=== PATIENT | male | born 1990 | race Caucasian/White ===

== ENCOUNTER 2016-12-10 11:55 | Inpatient (IN) | payer OTHER ==
[~2016-12-10] VITALS: Ht 188 cm; Wt 110.0 kg
[2016-12-10] VITALS (20 sets, daily range): BP systolic 44–99; BP diastolic 32–60; PULSE 117–126; TEMP 36.5–37.2; O2SAT 92–100; Ht 188 cm; Wt 110.0 kg
[2016-12-10] MEDS ORDERED: DEXTROSE 50% 50 ML SYR IV STA (12:03)
--- NOTE | 2016-12-10 12:14 | DIAGNOSTIC IMAGING REPORT ---
CHEST ONE VIEW PORTABLE HISTORY: fever COMPARISON: None. FINDINGS: Bilateral patchy perihilar airspace opacities and mild interstitial thickening. The heart is normal in size. No pleural effusions. No pneumothorax. No rib fractures. IMPRESSION: Bilateral patchy perihilar airspace opacities and mild interstitial thickening. This favors a multifocal pneumonia. Noncardiogenic pulmonary edema could also have a similar appearance but is considered less likely. Recommend follow-up to ensure resolution. Electronically signed by: Rogers Syemour M.D. 12/10/2016 12:13 PM Dictated Date/Time: 12/10/2016 12:12 PM
--- NOTE | 2016-12-10 12:34 | DIAGNOSTIC IMAGING REPORT ---
CHEST ONE VIEW PORTABLE CLINICAL HISTORY: Post Intubation RESPIRATORY FAILURE COMPARISON STUDY: December 10, 2016 FINDINGS: The cardiac and mediastinal contours remain stable. There are persistent asymmetric bilateral pulmonary airspace opacities left greater than right. There has been interval placement of endotracheal tube positioned 52 mm above the stanford.[ IMPRESSION: 1. Endotracheal tube 52 mm above the stanford 2. Persistent bilateral pulmonary airspace opacities Electronically signed by: Chucho Trevino M.D. 12/10/2016 12:32 PM Dictated Date/Time: 12/10/2016 12:31 PM
[2016-12-10] MEDS ORDERED: PROPOFOL IV EMULSION 10 MG/ML 100 ML VIAL IV STA ×2 (12:35→15:56)
[2016-12-10] MEDS ORDERED: SODIUM CHLORIDE 0.9% 1000ML 1,000 ML IV STA (12:37)
[2016-12-10] MEDS ORDERED: DEXTROSE 10% 1,000 ML IV SCH (12:45)
[2016-12-10] MEDS: PIPERACILLIN/TAZOBACTAM 4.5 GM/100ML D5W IV STA ×2 (13:02→13:19)
[2016-12-10 13:05] LABS: INR 1.1 (0.9-1.1); PROTHROMBIN TIME (PATIENT) 11.4 SECONDS (9.0-12.0)
[2016-12-10 13:07] LABS: ALLEN TEST POS (POS); ARTERIAL BLD GAS O2 SATURATION 81.6 % (90-95); ARTERIAL BLOOD GAS BASE EXCESS -6.3 mEq/L (-9-1.8); ARTERIAL BLOOD GAS HCO3 24 mmol/L (19-24); ARTERIAL BLOOD GAS PO2 50 mm/Hg (80-95); O2 ADMINISTRATION 100%
[2016-12-10 13:08] LABS: ARTERIAL BLOOD GAS pH 7.15 (7.35-7.45)
[2016-12-10 13:20] LABS: ALKALINE PHOSPHATASE 104 U/L (45-117); ALT/SGPT 91 U/L (12-78); AST/SGOT 113 U/L (15-37); BLOOD UREA NITROGEN 26 mg/dl (7-18); BUN/CREATININE RATIO 13.4 (10-20); CALCIUM 8.6 mg/dl (8.5-10.1); CARBON DIOXIDE 27 mmol/L (21-32); CHLORIDE 109 mmol/L (98-107); CKMB/CK RATIO 2.2 (0-3.0); GLUCOSE 35 mg/dl (70-99); POTASSIUM 4.2 mmol/L (3.5-5.1); SODIUM 143 mmol/L (136-145)
[2016-12-10] MEDS ORDERED: NITROGLYCERIN 0.4 MG SL PER TAB CHARGE SL PRN (13:45)
[2016-12-10] MEDS ORDERED: LORAZEPAM 2 MG/ML 1 ML VIAL IV PRN (13:45)
[2016-12-10] MEDS ORDERED: MoRPHine SULFATE 2 MG/ML CARP IV PRN (13:45)
[2016-12-10] MEDS ORDERED: ONDANSETRON INJ 2 MG/ML 2 ML VIAL IV PRN (13:45)
[2016-12-10 13:49] LABS: URINE APPEARANCE CLEAR (CLEAR); URINE BILIRUBIN NEG (NEG); URINE COLOR YELLOW; URINE NITRITE NEG (NEG); URINE PH 5.5 (4.5-7.5); URINE SPECIFIC GRAVITY 1.025 (1.000-1.030); UROBILINOGEN NEG (NEG)
[2016-12-10 13:53] LABS: MANUAL MICROSCOPIC REQUIRED? YES; REVIEW REQ? NO
[2016-12-10 13:59] LABS: ISTAT CREATININE 1.8 mg/dl (0.6-1.3); ISTAT HEMOGLOBIN 15.6 g/dl (14.0-18.0); ISTAT IONIZED CALCIUM 1.22 mmol/l (1.12-1.32)
[2016-12-10 14:09] LABS: URINE MUCUS PRESENT (NONE PRSENT); URINE RBC 0-4 /hpf (0-4)
[2016-12-10 14:10] LABS: URINE BACTERIA 1+ (NEG)
[2016-12-10 14:11] LABS: ZZUR CULT IF INDIC CLEAN CATCH YES
--- NOTE | 2016-12-10 14:21 | DIAGNOSTIC IMAGING REPORT ---
CT HEAD WITHOUT CONTRAST (CT) CLINICAL HISTORY: Acute change in mental status. Unresponsive patient. COMPARISON STUDY: No previous studies for comparison. TECHNIQUE: Axial CT of the brain is performed from the vertex to the skull base. IV contrast was not administered for this examination. A dose lowering technique was utilized adhering to the principles of ALARA. CT DOSE: 1277.12 mGycm FINDINGS: No intra or extra-axial mass lesions are visualized. There is no CT evidence of acute cortical infarction. There is no evidence of midline shift. There is no acute hemorrhage. No calvarial fractures are visualized. There is mild motion artifact. There is no evidence of pathologic ventricular dilatation. There is no evidence of acute sinusitis If the patient's neurological status does not improve, an MRI the brain should be considered in follow-up IMPRESSION: No acute intracranial findings Electronically signed by: Chucho Trevino M.D. 12/10/2016 2:19 PM Dictated Date/Time: 12/10/2016 2:18 PM
--- NOTE | 2016-12-10 14:26 | DIAGNOSTIC IMAGING REPORT ---
(CHEST) THORAX WITHOUT CT DOSE: 670.78 mGycm HISTORY: Dyspnea hypoxic per ccm TECHNIQUE: Multiaxial CT images of the chest were performed without contrast. A dose lowering technique was utilized adhering to the principles of ALARA. COMPARISON: None. FINDINGS: Endotracheal tube 3 cm with the stanford. Diffuse bilateral consolidative infiltrates are present. Perihilar infiltrative changes with underlying nodularity is also noted. This appears symmetric. Diagnostic considerations include a diffuse infiltrative and/or pneumonitis type process, versus the possibility of consolidative pulmonary edematous change. The nodularity raises the possibility of underlying neoplastic change/metastatic disease, versus the possibility atypical inflammatory process.. IMPRESSION: 1. Diffuse bilateral consolidative infiltrates involving the bulk of the lower lobe regions bilaterally. 2. Additional perihilar and upper lobe nodular-type change at with associated infiltrative change. 3. Differential considerations include consolidative pulmonary edema, respiratory distress syndrome, versus the possibility of an atypical pneumonitis and/or metastatic-type disease despite the patient's age. The above report was generated using voice recognition software. It may contain grammatical, syntax or spelling errors. Electronically signed by: Mayo Hui M.D. 12/10/2016 2:25 PM Dictated Date/Time: 12/10/2016 2:18 PM
[2016-12-10 14:40] LABS: HEMATOCRIT 45.8 % (42-52); MEAN CELL VOLUME 93.1 fL (80-100); MEAN CORPUSCULAR HEMOGLOBIN 31.5 pg (25-34); MEAN CORPUSCULAR HGB CONC 33.8 g/dl (32-36); MEAN PLATELET VOLUME 9.4 fL (7.4-10.4); PLATELET COUNT 173 K/uL (130-400); RED BLOOD COUNT 4.92 M/uL (4.7-6.1); WHITE BLOOD COUNT 1.23 K/uL (4.8-10.8)
[2016-12-10 14:50] LABS: BASO % 0.8 %; BASO ABS # 0.01 K/uL (0-0.2); COMPLETE YES; LYMPH % 38.2 %; LYMPH ABS # 0.47 K/uL (1.2-3.4); MONO % 7.3 %; NEUT % 53.7 %
[2016-12-10] MEDS ORDERED: PIPERACILL/TAZOBAC CONSULT ACTIVE PRN (15:00)
[2016-12-10] MEDS ORDERED: LORAZEPAM INJ 0.5 MG in SYRINGE 0.75 ML IV PRN (15:15)
[2016-12-10] MEDS ORDERED: SODI CHLOR 2.5MEQ/ML 14.6% INJ 155 MEQ in DEXTROSE 10% 1,000 ML IV SCH (15:17)
--- NOTE | 2016-12-10 15:17 | HISTORY & PHYSICAL EXAMINATION ---
DATE OF ADMISSION: 12/10/2016 CHIEF COMPLAINT: Unresponsiveness. HISTORY OF PRESENT ILLNESS: This is a 26-year-old male with past medical history significant for 1 episode of seizures when he was 22 YEARSs old and he was on seizure medication for 6 months, history of drug abuse and he was in rehab as per family. He was clean for several months now. He was brought in as he was unresponsive today. As per the girlfriend, patient was okay last night. He ate his dinner and slept around 11:00pm. Around 6:00 am in the morning when girlfriend woke up the patient seemed to having apneic breathing. She checked the pulse and pulse was good. She tried to wake him up. He did not wake up but he seemed okay and she went back to sleep. A couple of hours later, the patient mom came in and she tried to wake him up, the girlfriend woke up but the patient did not wake up. He was lying in the same position as per the girlfriend on his back all night and the patient was brought into the ER. Per EMS his blood sugars were low at 33 and was given an amp of dextrose. Also four doses of narcan given by EMS but it didn't wake him up. In the ER, his oxygen saturations were low in the 60s and they could not come up. He is status post intubation, requiring 100% FIO2, 12 PEEP, oxygen saturation 90%. Chest x-ray showed multifocal pulmonary edema, possible aspiration pneumonia. Family provided the history. ALLERGIES: No known drug allergies. PAST MEDICAL HISTORY: As mentioned above. PAST SURGICAL HISTORY: Knee surgery. MEDICATIONS: None. FAMILY HISTORY: Significant for grandparents have heart disease, diabetes and hypertension. SOCIAL HISTORY: Smokes about 1 pack of cigarettes a day, alcohol not drinking any more, drugs in the past was in rehab and as per family is clean since several months. REVIEW OF SYSTEMS: Unobtainable. PHYSICAL EXAMINATION: GENERAL: The patient is status post intubated. VITAL SIGNS: Temperature 36.5, pulse 128, respiratory rate 19, blood pressure 107/69, oxygen 91% on 100% FIO2 on mechanical ventilator. HEAD, EYES, EARS, NOSE, AND THROAT: Pupils are pinpoint and sluggish to reaction. NECK: No JVD, no neck masses, no carotid bruits. CARDIOVASCULAR: S1, S2 heard, regular rate and rhythm, no murmur, no gallop. RESPIRATORY SYSTEM: Normal AP diameter. No accessory muscle use. No wheezing, no crackles. ABDOMEN: Soft, bowel sounds sluggish. No distention. CENTRAL NERVOUS SYSTEM: Status post intubation. No response to painful stimuli or verbal stimuli. EXTREMITIES: No edema or erythema.. LABORATORIES: Sodium 143, potassium 4.2, chloride 109, bicarbonate 27, BUN 26, creatinine 1.9, serum glucose 35, lactic acid 2.3, calcium 8.6, magnesium 2, total bilirubin 0.5, direct bilirubin less than 0.1, AST 113, ALT 91, alkaline phosphatase 104, total creatine kinase 758, troponin I less than 0.3. ABGs pH 7.15, pCO2 of 69, pO 215, bicarbonate 24, oxygen 100%. PT 11.4, INR 1.1. Chest x-ray shows bilateral patchy perihilar airspace opacities and mild interstitial thickening . multifocal pneumonia VS Noncardiac pulmonary edema could also have a similar appearance but less likely. EKG: Sinus tachycardia with rate of 122, some Q-wave changes in inferior leads. No previous EKG to compare. ASSESSMENT AND PLAN: This is 26-year-old male who presents with acute respiratory failure. 1. Acute respiratory failure. multifocal pneumonia versus noncardiac pulmonary edema on chest x-ray. History of drug abuse, awaiting urine toxicology screen. The patient Unresponsive. He also had hypoxia and significant hypoglycemia. He received 1 amp of Dextrose and also D10 normal saline, but SUGARS still not coming up. Status post intubation and requiring high PEEP and 100% FIO2 to keep sats around 90%. The patient will be admitted to ICU. Close monitoring and supportive care and plan to get a CT of the head. Iv Zosyn. Close monitor. 2. Hypoglycemia, etiology unknown. No history of diabetes. He is on D10 normal saline. We will follow the blood sugars. 3. Elevated lactic acidosis secondary to to above. We will trend the lactate acid. 4. Possible pneumonia and aspiration. IV Zosyn. Follow the chest x-ray. 5. Acute renal failure. Creatinine 1.9 secondary to above, on IV fluids, monitor the labs. 6. Elevated troponin, most likely secondary to hypoxia. Non-ST elevated FL secondary to demand ischemia. We will trend cardiac enzymes and follow echocardiogram if needed. 7. Deep venous thrombosis prophylaxis, SCDs and TEDs. 8. Disposition: Close monitor in the ICU. TOTAL CRITICAL CARE TIME: 45 minutes. MTDD
--- NOTE | 2016-12-10 15:18 | Critical Care Consultation ---
Critical Care Consultation Date of Consultation: Dec 10, 2016. Attending Physician: Preston Ann MD Reason for Consultation: unresponsiveness, ARDS History of Present Illness This is 26 yo M with previous hx of drug abuse presenting with Hx of unresponsiveness. Night before arrival patient had difficulty breathing according to his girlfriend after which he went back to sleep. On subsequent attempt to awaken him, patient was unresponsive. EMS was called and patient was found to be hypoglycemic. History is from chart review due to patient status. Per EMS , his glucose was brought up to 150 without any change in level of responsiveness. Patient arrived in ED hypoxic with oxygen saturation at 69. He was afebrile, normotensive. He was subsequently intubated. CXR, CT Chest showed Diffuse bilateral consolidative infiltrates involving the bulk of the lower lobe regions bilaterally consistent with non-cardiogenic pulmonary edema vs pneumonitis. CT head was unremarkable. Patient was does have hx of single seizure 4 years after which he was placed on an unknown anticonvulsant for 6 mos. Partient was followed in the past by [facility] Neurology Past Medical/Surgical History PMhx Seizure episode x1 PSurgHx Knee Surgery Family History FHX: HTN, Heart Disease, Cancer Social History Smoking Status: Unknown if Ever Smoked Smokeless Tobacco Use: Unknown Allergies Coded Allergies: No Known Allergies (Unverified , 12/10/16) Home Medications No Active Prescriptions or Reported Meds Current Inpatient Medications Current Inpatient Medications Medications (Trade) Dose Ordered Sig/Sandra Route Start Time Stop Time Status Last Admin Dose Admin Lorazepam (Ativan Inj) 0.5 mg Q4H PRN IV 12/10/16 13:45 01/09/17 13:44 UNV Nitroglycerin (Nitrostat Tab) 0.4 mg UD PRN SL 12/10/16 13:45 01/09/17 13:44 Ondansetron HCl (Zofran Inj) 4 mg Q6H PRN IV 12/10/16 13:45 01/09/17 13:44 Pantoprazole Sodium 40 mg/ Syringe 10 ml @ 5 mls/min DAILY IV 12/11/16 09:00 01/10/17 08:59 UNV Morphine Sulfate (MoRPHine SULFATE INJ) 2 mg Q2H PRN IV 12/10/16 13:45 12/24/16 13:44 Piperacillin Sod/ Tazobactam Sod 4.5 gm/Dextrose 120 ml @ 30 mls/hr Q8H IV 12/10/16 18:00 12/17/16 17:59 Sodium Chloride 155 meq/Dextrose 1,062 ml @ 0 mls/hr Q0M IV 12/10/16 13:45 01/09/17 13:44 UNV Piperacillin Sod/ Tazobactam Sod (Consult) 1 ea UD PRN N/A 12/10/16 15:00 01/09/17 14:59 Review of Systems not obtainable. Physical Exam Date Time Temp Pulse Resp B/P (MAP) Pulse Ox O2 Delivery O2 Flow Rate FiO2 12/10/16 13:42 132 17 120/69 91 Mechanical Ventilator 100 12/10/16 13:12 128 19 107/69 91 Mechanical Ventilator 100 12/10/16 12:49 100 12/10/16 12:25 36.5 131 14 131/77 82 Mechanical Ventilator 100 12/10/16 12:15 140 28 114/67 69 Room Air 12/10/16 12:05 139 GENERAL: sedated, s/p intubation on ventilator EYE EXAM: PERRL OROPHARYNX: no exudate, no erythema, lips, buccal mucosa, and tongue normal and mucous membranes are moist NECK: supple, no adenopathy, LUNGS: diffuse crackles. no wheezing HEART: no murmurs, S1 normal and S2 normal ABDOMEN: abdomen soft, normo-active bowel sounds, no masses, UPPER EXTREMITIES: upper extremities are grossly normal. LOWER EXTREMITIES: No pitting edema. NEURO EXAM: under sedation, unable to assess comprehensive neuro exam Laboratory Results Last 24 Hours Test 12/10/16 12:05 12/10/16 12:15 12/10/16 12:17 12/10/16 12:28 Bedside Glucose 68 mg/dl White Blood Count 1.23 K/uL Red Blood Count 4.92 M/uL Hemoglobin 15.5 g/dL Hematocrit 45.8 % Mean Corpuscular Volume 93.1 fL Mean Corpuscular Hemoglobin 31.5 pg Mean Corpuscular Hemoglobin Concent 33.8 g/dl Platelet Count 173 K/uL Mean Platelet Volume 9.4 fL Neutrophils (%) (Auto) 53.7 % Lymphocytes (%) (Auto) 38.2 % Monocytes (%) (Auto) 7.3 % Eosinophils (%) (Auto) 0.0 % Basophils (%) (Auto) 0.8 % Neutrophils # (Auto) 0.66 K/uL Lymphocytes # (Auto) 0.47 K/uL Monocytes # (Auto) 0.09 K/uL Eosinophils # (Auto) 0.00 K/uL Basophils # (Auto) 0.01 K/uL RDW Standard Deviation 42.7 fL RDW Coefficient of Variation 12.5 % Immature Granulocyte % (Auto) 0.0 % Immature Granulocyte # (Auto) 0.00 K/uL Prothrombin Time 11.4 SECONDS Prothromb Time International Ratio 1.1 Sodium Level 143 mmol/L Potassium Level 4.2 mmol/L Chloride Level 109 mmol/L Carbon Dioxide Level 27 mmol/L Anion Gap 7.0 mmol/L 16.0 mmol/L Blood Urea Nitrogen 26 mg/dl Creatinine 1.90 mg/dl Est Creatinine Clear Calc Drug Dose 76.8 ml/min Estimated GFR () 55.9 Estimated GFR (Non- 48.3 BUN/Creatinine Ratio 13.4 Random Glucose 35 mg/dl Calcium Level 8.6 mg/dl Magnesium Level 2.0 mg/dl Total Bilirubin 0.5 mg/dl Direct Bilirubin < 0.1 mg/dl Aspartate Amino Transf (AST/SGOT) 113 U/L Alanine Aminotransferase (ALT/SGPT) 91 U/L Alkaline Phosphatase 104 U/L Total Creatine Kinase 758 U/L Creatine Kinase MB 16.7 ng/ml Creatine Kinase MB Ratio 2.2 Troponin I 0.301 ng/ml Total Protein 6.8 gm/dl Albumin 3.8 gm/dl Bedside Lactic Acid Venous 2.32 mmol/L Bedside Hemoglobin 15.6 g/dl Bedside Hematocrit 46 % Bedside Sodium 142 mEq/L Bedside Potassium 4.2 mEq/L Bedside Chloride 104 mEq/L Bedside Total CO2 27 mEq/l Bedside Blood Urea Nitrogen 29 mg/dl Bedside Creatinine 1.8 mg/dl Bedside Glucose (other) 35 mg/dl Bedside Ionized Calcium (Laura) 1.22 mmol/l Test 12/10/16 12:30 12/10/16 13:22 12/10/16 13:40 12/10/16 13:54 Arterial Blood pH 7.15 Arterial Blood Partial Pressure CO2 69 mmHg Arterial Blood Partial Pressure O2 50 mm/Hg Arterial Blood HCO3 24 mmol/L Arterial Blood Oxygen Saturation 81.6 % Arterial Blood Base Excess -6.3 mEq/L Arterial Blood Gas Delivery 100% Dino Test POS Bedside Glucose 44 mg/dl 88 mg/dl Urine Color YELLOW Urine Appearance CLEAR Urine pH 5.5 Urine Specific [place] 1.025 Urine Protein NEG Urine Glucose (UA) 1+ Urine Ketones NEG Urine Occult Blood NEG Urine Nitrite NEG Urine Bilirubin NEG Urine Urobilinogen NEG Urine Leukocyte Esterase NEG Urine RBC 0-4 /hpf Urine WBC 1-5 /hpf Urine Epithelial Cells 5-10 /lpf Urine Bacteria 1+ Urine Hyaline Casts 10-30 /lpf Urine Mucus PRESENT Diagnostic Results ct chest with ARDS, prominent ALI in the dorsum of the lungs, ETT in good position, Utox positive for methadone and THC. leukopenia, due to massive infiltrates post aspiration. Creat 1.9 , likely due to prerenal. LFTs are pending. Assessment & Plan 26 yo M w/ hx of drug abuse, previous suicide attempt, presenting with hx of epsiode of SOB/difficulty breathing followed by unresponsiveness on morning of arrival. SPRAYER INSECTICIDE/Neuro: hx of drug abuse, hx of 1 seizure episode 4 yrs ago Sedation: Propofol CT head dated 12/10/16: Result NO intracranial abnormalities Restraints in place Neurologic prophylaxis: Not indicated Utox: postive for Methadone, [place]ijuana, possible drug interaction leading to unresponsiveness vs seizure loaded with 1650 mg Keppra IV Respiratory: ARDS Vent Settings: type AC rate 16, tidal volume 500, PEEP 12, FiO2 100% Chest X-ray: Bilateral patchy perihilar airspace opacities and mild interstitial thickening. non-cardiogenic pulm edema cannot be ruled out CT Chest:Diffuse bilateral consolidative infiltrates involving the bulk of the lower lobe regions bilaterally. HOB up 30 degrees: Yes Cardiovascular: CV drips: Levophed Rhythm: Sinus tachycardia on arrival Fluids/Renal: NANCY likely prerenal IV Fluids: NS/Dextrose Cr. 1.9 s/p 1L bolus NS in ED on maintenance fluids at 100 mls/hr NS/Glucose John: Present GI/Nutrition: Feeding: NPO Endocrine: Hypoglycemic GLucose 68 on arrival Giving Dextrose as above Hematology: Leukopenia, White ct 1.23 Hemoglobin 15.3 DVT prophylaxis: Heparin 5000 3 times a day Skin/MSK: Infectious Disease/Immunology: Tmax: 36.1 Vancomycin day 1 Zosyn day 1 Cultures: Blood: pending Disposition: Plan to transport patient to [facility] for further care dieter to lack of facilities to manage ARDS with proning which is indicated. Attending note, seen , examined independently. chart reviewed discussed with Dr. shelton , appreciate his assistance, for further detail;s refer to his note. in summary, 26 yo, male , hx of suicidal attempt in 2012, otherwise healthy , found down by his family and brought to the ED with coma and Acute resp failure. requiring intubation and supranormal mechanical ventilation. started on propofol , unclear whether the pt had seizure or used elicited drugs. he had bronchoscopy done for ARDS dictated separately, showing large amount of brown aspirated materials. BP needed small dose of Norepinephrine, in ARDS requiring 100% FIO2 and 12 of PEEP. loaded with Keppra, and started on Vanc and Zosyn. the pt CT chest is compatible with the need for pronation to improve his oxygenation. Pronation apparently can not be done at our institution , so the pt was transferred to [facility] for further treatment of hypoxic resp failure and the need for continuous EEG monitoring. appreciate their acceptance. discussed with the staff on rounds in details. CCT 60 min excluding billable procedure time. Resident Tracking Resident Involvement: Resident Care Provided Care Provided: Adult Hospital Medicine
--- NOTE | 2016-12-10 15:21 | EMERGENCY ROOM VISIT NOTE ---
History Report prepared by Scott: Megha Frederick Under the Supervision of: Dr. Angelito Davis D.O. First contact with patient: 11:55 Stated Complaint: UNRESPONSIVE History of Present Illness The patient is a 22 year old male who presents to the Emergency Room with complaints of unresponsiveness beginning last night per EMS. Per EMS, the patient has a history of drug use but not in the past couple of years. Per EMS, the patient's blood sugar was brought up to 150 but the patient still did not respond. His vitals have been okay with the exception of the pulse oximeter which has slowed from the 60s to 90s on nonrebreather. The EMT states that the patient was combative for the first 20 minutes of the encounter. Family notes that patient was picked up from work last night and came home around 11. Patient is acting normally prior to going to bed. At 6 AM girlfriend woke up and patient was having which she describes as agonal breathing. She notes she shook him and his breathing improved. Following this she went back to bed. Later mother came in and attempted to wake him but was unsuccessful. EMS was called the patient is brought in following a total of 5.2 mg of Narcan in the field along with dextrose. There was no improvement of mentation during transport. Limited HPI secondary to unresponsiveness. Source of History: EMS History Limited By: other (unresponsiveness) Position: other (global) Review of Systems See HPI for pertinent positives & negatives. A total of 10 systems reviewed and were otherwise negative. Limited ROS secondary to unresponsiveness. Past Medical & Surgical Medical Problems: (1) Acute respiratory failure Unable to obtain medical history sheet due to unresponsiveness. Family History Unable to obtain medical history sheet due to unresponsiveness. Social History Unable to obtain medical history sheet due to unresponsiveness. Current/Historical Medications No Active Prescriptions or Reported Meds Allergies Coded Allergies: No Known Allergies (Unverified , 12/10/16) Physical Exam Vital Signs Date Time Temp Pulse Resp B/P (MAP) Pulse Ox O2 Delivery O2 Flow Rate FiO2 12/10/16 13:12 128 19 107/69 91 Mechanical Ventilator 100 12/10/16 12:49 100 12/10/16 12:25 36.5 131 14 131/77 82 Mechanical Ventilator 100 12/10/16 12:15 140 28 114/67 69 Room Air 12/10/16 12:05 139 Physical Exam GENERAL: unresponsive with nonrebreather in place EYE EXAM: pinpoint pupils which are reactive OROPHARYNX: no exudate, no erythema, lips, buccal mucosa, and tongue normal and mucous membranes are dry HEAD: normocephalic, atraumatic NECK: supple, no nuchal rigidity, no adenopathy, non-tender NOSE: no septal hematoma EARS: TM's clear bilaterally LUNGS: Diffuse rhonchi bilaterally with minimal chest wall movement. HEART: no murmurs, S1 normal and S2 normal ABDOMEN: abdomen soft, non-tender, normo-active bowel sounds, no masses, no rebound or guarding. BACK: Back is symmetrical on inspection and there is no deformity, no midline tenderness, no CVA tenderness. SKIN: no rashes and no bruising UPPER EXTREMITIES: upper extremities are grossly normal. LOWER EXTREMITIES: No pitting edema. NEURO EXAM: opens eyes to sternal rub, intermittently moans to painful palpation , intermittent voluntary movements of head and upper extremities. Localized the pain Medical Decision & Procedures ER Provider Diagnostic Interpretation: Radiology results as stated below per my review and the radiologist's interpretation: CHEST ONE VIEW PORTABLE HISTORY: fever COMPARISON: None. FINDINGS: Bilateral patchy perihilar airspace opacities and mild interstitial thickening. The heart is normal in size. No pleural effusions. No pneumothorax. No rib fractures. IMPRESSION: Bilateral patchy perihilar airspace opacities and mild interstitial thickening. This favors a multifocal pneumonia. Noncardiogenic pulmonary edema could also have a similar appearance but is considered less likely. Recommend follow-up to ensure resolution. Electronically signed by: Rogers Seymour M.D. 12/10/2016 12:13 PM Dictated Date/Time: 12/10/2016 12:12 PM CHEST ONE VIEW PORTABLE CLINICAL HISTORY: Post Intubation RESPIRATORY FAILURE COMPARISON STUDY: December 10, 2016 FINDINGS: The cardiac and mediastinal contours remain stable. There are persistent asymmetric bilateral pulmonary airspace opacities left greater than right. There has been interval placement of endotracheal tube positioned 52 mm above the stanford.[ IMPRESSION: 1. Endotracheal tube 52 mm above the stanford 2. Persistent bilateral pulmonary airspace opacities Electronically signed by: Chucho Trevino M.D. 12/10/2016 12:32 PM Dictated Date/Time: 12/10/2016 12:[address] HEAD WITHOUT CONTRAST (CT) CLINICAL HISTORY: Acute change in mental status. Unresponsive patient. COMPARISON STUDY: No previous studies for comparison. TECHNIQUE: Axial CT of the brain is performed from the vertex to the skull base. IV contrast was not administered for this examination. A dose lowering technique was utilized adhering to the principles of ALARA. CT DOSE: 1277.12 mGycm FINDINGS: No intra or extra-axial mass lesions are visualized. There is no CT evidence of acute cortical infarction. There is no evidence of midline shift. There is no acute hemorrhage. No calvarial fractures are visualized. There is mild motion artifact. There is no evidence of pathologic ventricular dilatation. There is no evidence of acute sinusitis If the patient's neurological status does not improve, an MRI the brain should be considered in follow-up IMPRESSION: No acute intracranial findings Electronically signed by: Chucho Trevino M.D. 12/10/2016 2:19 PM Dictated Date/Time: 12/10/2016 2:18 PM (CHEST) THORAX WITHOUT CT DOSE: 670.78 mGycm HISTORY: Dyspnea hypoxic per ccm TECHNIQUE: Multiaxial CT images of the chest were performed without contrast. A dose lowering technique was utilized adhering to the principles of ALARA. COMPARISON: None. FINDINGS: Endotracheal tube 3 cm with the stanford. Diffuse bilateral consolidative infiltrates are present. Perihilar infiltrative changes with underlying nodularity is also noted. This appears symmetric. Diagnostic considerations include a diffuse infiltrative and/or pneumonitis type process, versus the possibility of consolidative pulmonary edematous change. The nodularity raises the possibility of underlying neoplastic change/metastatic disease, versus the possibility atypical inflammatory process.. IMPRESSION: 1. Diffuse bilateral consolidative infiltrates involving the bulk of the lower lobe regions bilaterally. 2. Additional perihilar and upper lobe nodular-type change at with associated infiltrative change. 3. Differential considerations include consolidative pulmonary edema, respiratory distress syndrome, versus the possibility of an atypical pneumonitis and/or metastatic-type disease despite the patient's age. The above report was generated using voice recognition software. It may contain grammatical, syntax or spelling errors. Electronically signed by: Matidle Hui M.D. 12/10/2016 2:25 PM Dictated Date/Time: 12/10/2016 2:18 PM Laboratory Results 12/10/16 12:15 Red Blood Count 4.92, Mean Corpuscular Volume 93.1, Mean Corpuscular Hemoglobin 31.5, Mean Corpuscular Hemoglobin Concent 33.8, Mean Platelet Volume 9.4, Neutrophils (%) (Auto) 53.7, Lymphocytes (%) (Auto) 38.2, Monocytes (%) (Auto) 7.3, Eosinophils (%) (Auto) 0.0, Basophils (%) (Auto) 0.8, Neutrophils # (Auto) 0.66, Lymphocytes # (Auto) 0.47, Monocytes # (Auto) 0.09, Eosinophils # (Auto) 0.00, Basophils # (Auto) 0.01 12/10/16 12:15 Test 12/10/16 12:15 12/10/16 12:17 12/10/16 12:28 12/10/16 12:30 White Blood Count 1.23 K/uL (4.8-10.8) Red Blood Count 4.92 M/uL (4.7-6.1) Hemoglobin 15.5 g/dL (14.0-18.0) Hematocrit 45.8 % (42-52) Mean Corpuscular Volume 93.1 fL (80-100) Mean Corpuscular Hemoglobin 31.5 pg (25-34) Mean Corpuscular Hemoglobin Concent 33.8 g/dl (32-36) Platelet Count 173 K/uL (130-400) Mean Platelet Volume 9.4 fL (7.4-10.4) Neutrophils (%) (Auto) 53.7 % Lymphocytes (%) (Auto) 38.2 % Monocytes (%) (Auto) 7.3 % Eosinophils (%) (Auto) 0.0 % Basophils (%) (Auto) 0.8 % Neutrophils # (Auto) 0.66 K/uL (1.4-6.5) Lymphocytes # (Auto) 0.47 K/uL (1.2-3.4) Monocytes # (Auto) 0.09 K/uL (0.11-0.59) Eosinophils # (Auto) 0.00 K/uL (0-0.5) Basophils # (Auto) 0.01 K/uL (0-0.2) RDW Standard Deviation 42.7 fL (36.4-46.3) RDW Coefficient of Variation 12.5 % (11.5-14.5) Immature Granulocyte % (Auto) 0.0 % Immature Granulocyte # (Auto) 0.00 K/uL (0.00-0.02) Prothrombin Time 11.4 SECONDS (9.0-12.0) Prothromb Time International Ratio 1.1 (0.9-1.1) Est Creatinine Clear Calc Drug Dose 76.8 ml/min Estimated GFR () 55.9 Estimated GFR (Non- 48.3 BUN/Creatinine Ratio 13.4 (10-20) Calcium Level 8.6 mg/dl (8.5-10.1) Magnesium Level 2.0 mg/dl (1.8-2.4) Total Bilirubin 0.5 mg/dl (0.2-1) Direct Bilirubin < 0.1 mg/dl (0-0.2) Aspartate Amino Transf (AST/SGOT) 113 U/L (15-37) Alanine Aminotransferase (ALT/SGPT) 91 U/L (12-78) Alkaline Phosphatase 104 U/L (45-117) Total Creatine Kinase 758 U/L (39-308) Creatine Kinase MB 16.7 ng/ml (0.5-3.6) Creatine Kinase MB Ratio 2.2 (0-3.0) Troponin I 0.301 ng/ml (0-0.045) Total Protein 6.8 gm/dl (6.4-8.2) Albumin 3.8 gm/dl (3.4-5.0) Bedside Lactic Acid Venous 2.32 mmol/L (0.90-1.70) Bedside Hemoglobin 15.6 g/dl (14.0-18.0) Bedside Hematocrit 46 % (42-52) Bedside Sodium 142 mEq/L (135-144) Bedside Potassium 4.2 mEq/L (3.3-5.0) Bedside Chloride 104 mEq/L (101-112) Bedside Total CO2 27 mEq/l (24-31) Anion Gap 16.0 mmol/L (16-25) Bedside Blood Urea Nitrogen 29 mg/dl (7-18) Bedside Creatinine 1.8 mg/dl (0.6-1.3) Bedside Glucose (other) 35 mg/dl (70-99) Bedside Ionized Calcium (Laura) 1.22 mmol/l (1.12-1.32) Arterial Blood pH 7.15 (7.35-7.45) Arterial Blood Partial Pressure CO2 69 mmHg (35-46) Arterial Blood Partial Pressure O2 50 mm/Hg (80-95) Arterial Blood HCO3 24 mmol/L (19-24) Arterial Blood Oxygen Saturation 81.6 % (90-95) Arterial Blood Base Excess -6.3 mEq/L (-9-1.8) Arterial Blood Gas Delivery 100% Dino Test POS (POS) Test 12/10/16 13:40 Urine Color YELLOW Urine Appearance CLEAR (CLEAR) Urine pH 5.5 (4.5-7.5) Urine Specific Keller 1.025 (1.000-1.030) Urine Protein NEG (NEG) Urine Glucose (UA) 1+ (NEG) Urine Ketones NEG (NEG) Urine Occult Blood NEG (NEG) Urine Nitrite NEG (NEG) Urine Bilirubin NEG (NEG) Urine Urobilinogen NEG (NEG) Urine Leukocyte Esterase NEG (NEG) Urine RBC 0-4 /hpf (0-4) Urine WBC 1-5 /hpf (0-5) Urine Epithelial Cells 5-10 /lpf (0-5) Urine Bacteria 1+ (NEG) Urine Hyaline Casts 10-30 /lpf (0-5) Urine Mucus PRESENT (NONE PRSENT) Laboratory results per my review. Medications Administered Medications (Trade) Dose Ordered Sig/Sandra Route Start Time Stop Time Status Last Admin Dose Admin Dextrose (Dextrose 50% 50ML Syringe) 50 ml NOW STAT IV 12/10/16 12:03 12/10/16 12:06 DC 12/10/16 12:15 50 ML Propofol (Diprivan Iv Emulsion 100ml Vial) 1 dose UD STAT IV 12/10/16 12:35 12/10/16 12:37 DC 12/10/16 12:46 1 DOSE Dextrose 1,000 ml @ 100 mls/hr Q10H IV 12/10/16 12:45 12/10/16 14:55 DC 12/10/16 12:44 100 MLS/HR Sodium Chloride 1,000 ml @ 999 mls/hr Q1H1M STAT IV 12/10/16 12:37 12/10/16 13:37 DC 12/10/16 12:37 999 MLS/HR Procedure EM PROCEDURE NOTE - Endotracheal Intubation PROCEDURE NOTE: Informed consent was not obtained by the patient. Verify Correct Patient: yes Procedure: Endotracheal intubation Indication: respiratory failure The procedure was done emergently. Description of the Procedure: The patient was seen and properly identified. The patient was pre-oxygenated and intubated after rapid sequence induction with meds: Succinylcholine and ketamine. Intubation was performed using a glidescope and a [7.5] cuffed endotracheal tube. The tube was visualized going through the cords and secured with the []cm matilde at the lips. The patient had good bilateral breath sounds in the axillae with good chest rise. Proper ET tube placement was confirmed by end tidal CO2 detector. The patient tolerated the procedure well. Chest X-Ray reviewed after procedure. ECG Indication: other (unresponsiveness) Rate (beats per minute): 122 Rhythm: sinus tachycardia Findings: no ectopy, other (normal axis) ED Course ED COURSE: Vital signs were reviewed and showed tachycardia and hypoxia. The patients medical record was reviewed The above diagnostic studies were performed and reviewed. ED treatments and interventions as stated above. 1200: The patient was evaluated in room B1. A complete history and physical examination was performed. 1203: Ordered Dextrose 50 ml IV. 1235: Ordered Propofol 1 dose protocol IV. 1237: Ordered Sodium Chloride 1,000 ml @ 999 mls/hr IV. 1245: Ordered Dextrose 1,000 ml @ 100 mls/hr IV. 1302: Ordered Zosyn Iv 4.5 gm IV. 1310: I reviewed the patient's case with Dr. Ann. He will evaluate the patient for further management. Medical Decision Differential diagnoses includes but is not limited to toxic, metabolic, infectious, traumatic, cardiac, neurologic, hematologic, psychiatric and inflammatory etiologies. Patient is a 26-year-old male who presents the ER who I received medical command call on. Patient has received a total of more than 5 mg of Narcan and dextrose without improvement. Upon arrival to the ER pulse ox is in the 70s. He was immediately placed on BiPAP as a secondary to endotracheal intubation. Labs and IVs were obtained. Patient was intubated with a 7.5 tube at 28cm at the lips. Initial blood sugar again dropped and patient was given amp of D50. There is no improvement of his mentation. Patient is given a bolus normal saline, IV antibiotics and placed on a propofol drip for sedation. Heart rate did trend down from the 140s to 120s. He is monitored closely. I updated family at this time. Patient was started on a D10 drip. Chest x-ray supports bilateral pulmonary edema. He does have a history of drug abuse. Following intubation I discussed the patient with the ICU attending who recommended transfer to the ICU for immediate evaluation. ABG shows a restaurant acidosis. PEEP was increased to obtain a pulse ox in the high 80s. Patient was continued on his dextrose drip and prior to being transferred for CT of the chest per ICU BMP resulted with again hypoglycemia. D50 was given again I notified the ICU attending has the patient was being transferred there. Patient family have been updated at bedside. Patient was admitted with altered mental status without signs of seizure and ARDS. Medication Reconcilliation Current Medication List: was personally reviewed by me Blood Pressure Screening Patient's blood pressure: Normal blood pressure Consults Time Called: 1200 Consulting Physician: Dr. Ann Returned Call: [phone] I reviewed the patient's case with Dr. Ann. He will evaluate the patient for further management. Impression Primary Impression: Acute respiratory failure with hypoxia Additional Impressions: Acidosis Acute respiratory distress syndrome (ARDS) Hypoglycemia Hypoxia Critical Care I have personally spent 75 minutes of critical care time in the direct management of this patient. This includes bedside care, interpretation of diagnostic studies, and testing, discussion with consultants, patient, and family members, and other required patient management activities. This 75 minutes is in excess of all separately billable procedures. Scribe Attestation The scribe's documentation has been prepared under my direction and personally reviewed by me in its entirety. I confirm that the note above accurately reflects all work, treatment, procedures, and medical decision making performed by me. Departure Information Dispostion Being Evaluated By Hospitalist Prescriptions No Active Prescriptions or Reported Meds Problem Qualifiers
[2016-12-10] MEDS ORDERED: VANCOMYCIN INJ 1,000 MG in SODIUM CHLORIDE 0.9% 250ML 250 ML IV STA (15:49)
[2016-12-10] MEDS ORDERED: NOREPINEPHRINE BIT INJ 8 MG in DEXTROSE 5% 500ML 500 ML IV SCH (15:56)
[2016-12-10] MEDS ORDERED: VANCOMYCIN INJ 2,750 MG in SODIUM CHLORIDE 0.9% 500ML 500 ML IV SCH (16:00)
--- NOTE | 2016-12-10 16:04 | Discharge Instructions ---
Discharge Instructions Date of Service Dec 10, 2016. Admission Reason for Admission: Acute Respiratory Failure Discharge Discharge Diagnosis / Problem: acute resp failure . ARDS Discharge Goals Goal(s): Decrease discomfort, Improve function Activity Recommendations Activity Level: Bedrest . Additional Information Patient informed of condition: No (S/P INTUBATED) Advance Directives: Yes DNR: No Level of Care: Other ([facility]) Communicable Disease: No Prognosis: Other (NEEDS HIGHER CARE) Oxygen at (LPM): S/P INTUBATED AND ON MECHANICAL VENTILATION John Catheter: Yes Instructions / Follow-Up Instructions / Follow-Up FOLLOWUP PER [facility] Current Hospital Diet Patient's current hospital diet: Discharge Diet Recommended Diet: N/A Pending Studies Studies pending at discharge: yes List of pending studies: CULTURES FROM BRONCHOSCOPY Physician Orders On Transfer Vital Signs: EVERY 8HRS Additional Orders: MEDICATIONS PER MED RECONCILIATION Medical Emergencies . Who to Call and When: Medical Emergencies: If at any time you feel your situation is an emergency, please call 911 immediately. . Non-Emergent Contact Non-Emergency issues call your: Primary Care Provider . . "Provider Documentation" section prepared by Preston Ann. . Core Measure Problem Core Measures: None
[2016-12-10 16:14] LABS: BENZODIAZEPINE, URINE NEG (NEG); COCAINE,URINE NEG (NEG); PHENCYCLIDINE, URINE NEG (NEG)
[2016-12-10] MEDS ORDERED: VANCOMYCIN CONSULT ACTIVE PRN (16:15)
[2016-12-10] MEDS ORDERED: LEVETIRACETAM IV ONE (16:15)
[2016-12-10] MEDS ORDERED: DEXTROSE 5% IV ONE (16:15)
[2016-12-10 16:22] LABS: ISTAT ALLEN TEST Pass; ISTAT ARTERIAL BLOOD GAS HCO3 21 meq/L (19-24); ISTAT ARTERIAL BLOOD GAS PCO2 57 mmHg (35-46); ISTAT ARTERIAL BLOOD GAS PO2 99 mmHg (80-95); ISTAT ARTERIAL BLOOD GAS pH 7.18 (7.35-7.45); ISTAT CARBON DIOXIDE 23 mEq/l (24-31); ISTAT DELIVERY SYSTEM Ventilator; ISTAT FIO2 100 %; ISTAT PEEP 12; ISTAT RATE 20; ISTAT SITE R Radial; VE 13.5; Vt 500
--- NOTE | 2016-12-10 16:44 | Procedure Note ---
Procedure Note Procedure Date Dec 10, 2016. Procedure Description Procedure Name: bronchoscopy Procedure time out: side/site verified, patient ID confirmed, correct procedure Consent obtained: verbal Performed by: attending Indications: diagnostic, therapeutic Contraindications: none Description: the pt was found down in the field, with large bilateral infiltrates and ARDS, with mostly aspirated materials. consent verbally from the mother at the bed side agreed to the procedure. the pt was already intubated on propofol drip. the pt monitored with ICU standard. the bronch passed through # 7.5 ETT, the TBT examined to sub-sub segmental level. findings: the ETT is 3 cm above the stanford. large amount of thick brown secretions removed from the RLL mainly and sent for micro. minimal BAL obtained, to avoid worsening ALI. elizondo of the tracheal mucosa from bile or gastric acid aspiration at the level of the LLL bronchus. tolerated the procedure well. no immediate complications. Complications: none
[2016-12-10] MEDS ORDERED: SUCCINYLCHOLINE CHLORIDE 20 MG/ML 10 ML VIAL IV ONE (17:04)
[2016-12-10] MEDS ORDERED: KETAMINE HCL INJ 50 MG/ML 10 ML VIAL IV ONE (17:04)
--- NOTE | 2016-12-10 17:49 | Discharge Summary ---
Discharge Summary Date of Service Dec 10, 2016. Discharge Summary Admission Date: Dec 10, 2016 at 13:40 Discharge Date: Dec 10, 2016 Discharge Disposition: Acute care facility Principal Diagnosis: ACUTE RESP FAILURE ARDS ARF PNEUMONIA? UNRESPONSIVE Secondary Diagnoses/Problems: SEIZURE Procedures: CXR: Bilateral patchy perihilar airspace opacities and mild interstitial thickening. This favors a multifocal pneumonia. Noncardiogenic pulmonary edema could also have a similar appearance but is considered less likely. Recommend follow-up to ensure resolution. CT HEAD: No acute intracranial findings CT CHEST: 1. Diffuse bilateral consolidative infiltrates involving the bulk of the lower lobe regions bilaterally. 2. Additional perihilar and upper lobe nodular-type change at with associated infiltrative change. 3. Differential considerations include consolidative pulmonary edema, respiratory distress syndrome, versus the possibility of an atypical pneumonitis and/or metastatic-type disease despite the patient's age. S/P BRONCHOSCOPY Consultations: CRITICAL CARE Medication Reconciliation Medication Profile: No Active Prescriptions or Reported Meds Admission Information HPI (per Admitting provider): This is a 26-year-old male with past medical history significant for 1 episode of seizures when he was 22 YEARSs old and he was on seizure medication for 6 months, history of drug abuse and he was in rehab as per family. He was clean for several months now. He was brought in as he was unresponsive today. As per the girlfriend, patient was okay last night. He ate his dinner and slept around 11:00pm. Around 6:00 am in the morning when girlfriend woke up the patient seemed to having apneic breathing. She checked the pulse and pulse was good. She tried to wake him up. He did not wake up but he seemed okay and she went back to sleep. A couple of hours later, the patient mom came in and she tried to wake him up, the girlfriend woke up but the patient did not wake up. He was lying in the same position as per the girlfriend on his back all night and the patient was brought into the ER. Per EMS his blood sugars were low at 33 and was given an amp of dextrose. Also four doses of narcan given by EMS but it didn't wake him up. In the ER, his oxygen saturations were low in the 60s and they could not come up. He is status post intubation, requiring 100% FIO2, 12 PEEP, oxygen saturation 90%. Chest x-ray showed multifocal pulmonary edema, possible aspiration pneumonia. Family provided the history. Physical Exam (per Admitting): GENERAL: The patient is status post intubated. VITAL SIGNS: Temperature 36.5, pulse 128, respiratory rate 19, blood pressure 107/69, oxygen 91% on 100% FIO2 on mechanical ventilator. HEAD, EYES, EARS, NOSE, AND THROAT: Pupils are pinpoint and sluggish to reaction. NECK: No JVD, no neck masses, no carotid bruits. CARDIOVASCULAR: S1, S2 heard, regular rate and rhythm, no murmur, no gallop. RESPIRATORY SYSTEM: Normal AP diameter. No accessory muscle use. No wheezing, no crackles. ABDOMEN: Soft, bowel sounds sluggish. No distention. CENTRAL NERVOUS SYSTEM: Status post intubation. No response to painful stimuli or verbal stimuli. EXTREMITIES: No edema or erythema. Hospital Course ISABEL WAS ADMITTED TO ICU FOR ACUTE RESP FAILURE. ETIOLOGY UNCLEAR. POSSIBLE SEIZURES AND HYPOGLYCEMIA OR DRUG OVERDOSE. S/P BRONCHOSCOPY IN ICU BY CRITICAL AND JUNKY MATERIAL WAS ASPIRATED.STILL REQUIRING HIGH PEEP AND 100% OXYGEN.CT CHEST ARDS PATTERN. CANNOT DO PRONE VENTILATION IN THIS HOSPITAL. SO ISABEL WAS TRANSFERRED TO [facility].A DOSE OF IV KEPPRA AND IV VANCOMYCIN GIVEN PRIOR TO TRANSFER. A DOSE OF IV ZOSYN GIVEN IN ER. A/P ON ADMISSION: This is 26-year-old male who presents with acute respiratory failure. 1. Acute respiratory failure. multifocal pneumonia versus noncardiac pulmonary edema on chest x-ray. History of drug abuse, awaiting urine toxicology screen. The patient Unresponsive. He also had hypoxia and significant hypoglycemia. He received 1 amp of Dextrose and also D10 normal saline, but SUGARS still not coming up. Status post intubation and requiring high PEEP and 100% FIO2 to keep sats around 90%. The patient will be admitted to ICU. Close monitoring and supportive care and plan to get a CT of the head. Iv Zosyn. Close monitor. 2. Hypoglycemia, etiology unknown. No history of diabetes. He is on D10 normal saline. We will follow the blood sugars. 3. Elevated lactic acidosis secondary to to above. We will trend the lactate acid. 4. Possible pneumonia and aspiration. IV Zosyn. Follow the chest x-ray. 5. Acute renal failure. Creatinine 1.9 secondary to above, on IV fluids, monitor the labs. 6. Elevated troponin, most likely secondary to hypoxia. Non-ST elevated AK secondary to demand ischemia. We will trend cardiac enzymes and follow echocardiogram if needed. 7. Deep venous thrombosis prophylaxis, SCDs and TEDs. 8. Disposition: Close monitor in the ICU. Total time spent on discharge = 45MINUTES This includes examination of the patient, discharge planning, medication reconciliation, and communication with other providers. Discharge Instructions NO D/C INSTRUCTIONS PATIENT TRANSFERRED TO [facility]
[2016-12-10] MEDS ORDERED: PIPERACILL/TAZOBAC IV 4.5 GM in DEXTROSE 5% 100ML 100 ML IV SCH (18:00)
[2016-12-11] MEDS ORDERED: PANTOprazole INJ 40 MG in SYRINGE 0 ML IV SCH (09:00)
[2016-12-13 14:53] LABS: METHADONE METABOLITE 5170 NG/ML (CUTOFF=100); METHADONE VERIFIC 6690 NG/ML (CUTOFF=100)
== END 2016-12-10 17:05 | disposition short-term general hospital (02) | DRG 166 ==
LOC: EDBD 11:55 → C.EDB 11:56 → ENRESERV 13:38 → C.MSICU 13:40
PROVIDERS: ADMIT Internal Medicine; ATTEND Internal Medicine
PROC: 0BH17EZ Insertion of Endotracheal Airway into Trachea, Via Natural or Artificial Opening (ICD-10-PCS; principal; 2016-12-10)
PROC: 5A1935Z Respiratory Ventilation, Less than 24 Consecutive Hours (ICD-10-PCS; principal; 2016-12-10)
PROC: 0B9F8ZX Drainage of Right Lower Lung Lobe, Via Natural or Artificial Opening Endoscopic, Diagnostic (ICD-10-PCS; 2016-12-10)
DX: J96.01 Acute respiratory failure with hypoxia (principal); I21.4 Non-ST elevation (NSTEMI) myocardial infarction; J81.0 Acute pulmonary edema; J69.0 Pneumonitis due to inhalation of food and vomit; R40.20 Unspecified coma; I24.8 Other forms of acute ischemic heart disease; E87.2 Acidosis; N17.9 Acute kidney failure, unspecified; D72.819 Decreased white blood cell count, unspecified; E16.2 Hypoglycemia, unspecified; R00.0 Tachycardia, unspecified; R56.9 Unspecified convulsions; F17.210 Nicotine dependence, cigarettes, uncomplicated; Z86.59 Personal history of other mental and behavioral disorders; Z91.5 Personal history of self-harm